=== PATIENT | male | born 1985 | race Caucasian/White ===

== ENCOUNTER 2019-04-15 12:44 | Emergency (ER) | payer BC ==
[2019-04-15] MEDS ORDERED: IBUPROFEN 400 MG TAB ONE (14:08)
[2019-04-15] MEDS ORDERED: IBUPROFEN 200 MG TAB PO ONE (14:09)
--- NOTE | 2019-04-15 14:30 | RAD REPORT ---
EXAM DESCRIPTION: RAD - Mandible <4 Views - 04/15/2019 2:17 pm CLINICAL HISTORY: FACIAL PAIN Jaw trauma, pain COMPARISON: No comparisons FINDINGS: No acute fracture of the mandible seen. The paranasal sinuses and mastoids are clear.
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
== END 2019-04-15 14:45 | disposition home or self-care (01) ==
LOC: ER 12:44
DX: R68.84 Jaw pain (principal)
CPT/HCPCS: 70100; 99284

== ENCOUNTER 2021-08-05 10:17 | Emergency (ER) | payer OTHER ==
[2021-08-05 11:13] LABS: Absolute Lymphocytes (CBC) 1.6 K/uL (0.7-4.9); Basophils % 1.1 % (0-1.3); Hematocrit 46.2 % (39.6-49.0); Lymphocytes % 23.2 % (15.3-44.8); MPV 8.1 fL (7.6-11.3); RBC Red Blood Cell Count 5.39 M/uL (4.33-5.43)
[2021-08-05 11:15] LABS: Protime INR 1.1
[2021-08-05] MEDS ORDERED: NA CHLORIDE 0.9% 1,000 ML ONE (11:27)
[2021-08-05 11:31] LABS: ALT/SGPT 26 U/L (12-78); AST/SGOT 15 U/L (15-37); Albumin 3.7 g/dL (3.4-5.0); Alkaline Phosphatase 59 U/L (45-117); BUN Blood Urea Nitrogen 15 mg/dL (7-18); Bicarbonate 28 mmol/L (21-32); Bilirubin Direct < 0.1 mg/dL (0-0.2); Bilirubin Total 0.4 mg/dL (0.2-1.0); Glucose Level 101 mg/dL (74-106); Magnesium 2.2 mg/dL (1.8-2.4); NT PRO-BNP 8 pg/mL (<125); Potassium 3.9 mmol/L (3.5-5.1); Protein, Total 7.9 g/dL (6.4-8.2); Sodium Level 141 mmol/L (136-145); Troponin (Emerg Dept Use Only) < 0.02 ng/mL (0.0-0.045)
--- NOTE | 2021-08-05 11:43 | RAD REPORT ---
EXAM DESCRIPTION: CT - Chest For Pe Angio - 08/05/2021 11:10 am CLINICAL HISTORY: Chest pain COMPARISON: None. TECHNIQUE: Dynamically enhanced axial 3 mm thick images of the chest were obtained during administra tion of <100> mL Isovue 370 IV contrast. Coronal and oblique reconstruction images were generated and reviewed. Exam utilizes a protocol for optimal evaluation of pulmonary arterial tree. Maximum intensity projections 3D imaging was utilized All CT scans are performed using dose optimization technique as appropriate and may include automated exposure control or mA/KV adjustment according to patient size. FINDINGS: A pulmonary embolus is not seen. A thoracic aortic aneurysm is not noted. A pleural effusion is not seen. A pericardial effusion is not seen. A lung consolidation is not present. IMPRESSION: Negative for a pulmonary embolism.
--- NOTE | 2021-08-05 11:55 | RAD REPORT ---
EXAM DESCRIPTION: Ange Single View08/05/2021 11:47 am CLINICAL HISTORY: Chest pain COMPARISON: none FINDINGS: The lungs appear clear of acute infiltrate. The heart is normal size IMPRESSION: No acute abnormalities displayed
--- NOTE | 2021-08-05 12:50 | EDPHYS ---
Physician Documentation [facility] Name: Hugo Yu Age: 36 yrs Sex: Male : 1985 Arrival Date: 08/05/2021 Time: 10:17 Bed 20 Private MD: ED Physician Floyd Helton HPI: 08/05 10:40 This 36 yrs old Male presents to ER via Ambulatory with complaints of Chest pm1 Pain. 10:40 The patient or guardian reports chest pain that is located primarily in the left pm1 lateral anterior chest. The pain does not radiate. Associated signs and symptoms: Pertinent negatives: abdominal pain, diaphoresis, dizziness, headache, nausea, palpitations, shortness of breath, vomiting. 10:40 The chest pain is described as sharp. Duration: The patient or guardian reports a pm1 single episode, that is still ongoing. Modifying factors: the symptoms are aggravated by deep breath. Severity of pain: in the emergency department the pain is unchanged. The patient has experienced a previous episode, approximately 6 months ago, similar but on the right lower chest. Was diagnosed with PE and is currently taking eliquis 2.5 mg PO BID. The patient has not recently seen a physician. Historical: - Allergies: 10:21 No Known Allergies; aa5 - Home Meds: 10:21 Eliquis oral [Active]; Xanax Oral [Active]; aa5 - PMHx: 10:21 PE; aa5 - PSHx: 10:21 None; aa5 - Immunization history:: Client reports receiving the 2nd dose of the Covid vaccine. - Social history:: Smoking status: Patient reports the use of cigarette tobacco products, 5 cigarettes a day. ROS: 10:40 Constitutional: Negative for fever, chills, and weight loss. pm1 10:40 Respiratory: Negative for shortness of breath, cough, wheezing, and pleuritic chest pain, Abdomen/GI: Negative for abdominal pain, nausea, vomiting, diarrhea, and constipation, MS/Extremity: Negative for injury and deformity, Skin: Negative for injury, rash, and discoloration, Neuro: Negative for headache, weakness, numbness, tingling, and seizure. 10:40 Cardiovascular: Positive for chest pain, of the left lateral anterior chest, Negative for edema, orthopnea, palpitations. 10:40 All other systems are negative. Exam: 10:40 Constitutional: This is a well developed, well nourished patient who is awake, alert, pm1 and in no acute distress. Head/Face: Normocephalic, atraumatic. 10:40 Skin: Warm, dry with normal turgor. Normal color with no rashes, no lesions, and no evidence of cellulitis. MS/ Extremity: Pulses equal, no cyanosis. Neurovascular intact. Full, normal range of motion. 10:40 Cardiovascular: Exam negative for acute changes, Rate: normal, Rhythm: regular, Pulses: no pulse deficits are appreciated, Edema: is not appreciated. 10:40 Respiratory: Exam negative for acute changes, respiratory distress, shortness of breath, Breath sounds: are clear throughout. 10:40 Abdomen/GI: Exam negative for acute changes, Inspection: abdomen appears normal, Palpation: abdomen is soft and non-tender, in all quadrants. 10:40 Neuro: Exam negative for acute changes, Orientation: is normal, Mentation: is normal, Motor: is normal, moves all fours. Vital Signs: 10:22 BP 120 / 83; Pulse 85; Resp 18 S; Temp 97.7(TE); Pulse Ox 98% on R/A; Weight 70.31 kg aa5 (R); Height 5 ft. 10 in. (177.80 cm) (R); 11:15 BP 121 / 85; Pulse 75; Resp 18; Temp 97.8; Pulse Ox 100% ; sl2 11:45 BP 124 / 91; Pulse 76; Resp 18; Pulse Ox 100% on R/A; sl2 12:30 BP 122 / 87; Pulse 71; Resp 18; Pulse Ox 100% on R/A; sl2 13:00 BP 117 / 92; Pulse 70; Resp 18; Temp 97.6(O); Pulse Ox 99% on R/A; sl2 10:22 Body Mass Index 22.24 (70.31 kg, 177.80 cm) aa5 MDM: 10:38 Patient medically screened. pm1 12:48 Data reviewed: vital signs. Data interpreted: Pulse oximetry: on room air is 100 %. pm1 Interpretation: normal. Counseling: I had a detailed discussion with the patient and/or guardian regarding: the historical points, exam findings, and any diagnostic results supporting the discharge/admit diagnosis, lab results, radiology results, the need for outpatient follow up, to return to the emergency department if symptoms worsen or persist or if there are any questions or concerns that arise at home. 08/05 10:39 Order name: Basic Metabolic Panel; Complete Time: 11:34 pm1 08/05 10:39 Order name: CBC with Diff; Complete Time: 11:34 pm1 08/05 10:39 Order name: LFT's; Complete Time: 11:34 pm1 08/05 10:39 Order name: Magnesium; Complete Time: 11:34 pm1 08/05 10:39 Order name: NT PRO-BNP; Complete Time: 11:34 pm1 08/05 10:39 Order name: PT-INR; Complete Time: 11:34 pm1 08/05 10:39 Order name: Troponin (emerg Dept Use Only); Complete Time: 11:34 pm1 08/05 10:39 Order name: XRAY Chest (1 view); Complete Time: 12:17 pm1 08/05 10:39 Order name: EKG; Complete Time: 10:40 pm1 08/05 10:39 Order name: Cardiac monitoring; Complete Time: 11:51 pm1 08/05 10:39 Order name: EKG - Nurse/Tech; Complete Time: 11:51 pm1 08/05 10:39 Order name: IV Saline Lock; Complete Time: 11:51 pm1 08/05 10:39 Order name: CT Chest For PE Angio; Complete Time: 12:17 pm1 08/05 10:39 Order name: Labs collected and sent; Complete Time: 11:51 pm1 08/05 10:39 Order name: O2 Per Protocol; Complete Time: 11:52 pm1 08/05 10:39 Order name: O2 Sat Monitoring; Complete Time: 11:52 pm1 Administered Medications: 11:25 Drug: NS 0.9% 1000 ml Route: IV; Rate: 1000 ml; Site: right antecubital; sl2 11:37 Follow up: Response: No adverse reaction sl2 12:40 Follow up: IV Status: Completed infusion; IV Intake: 1000ml sl2 Disposition: 17:02 Co-signature as Attending Physician, Floyd Helton MD I agree with the assessment and rn plan of care. Attestation: The patient's history, exam findings, diagnostics, and a summary of any interventions or procedures was reviewed in detail with Francisco Koroma NP. Disposition Summary: 08/05/21 12:49 Discharge Ordered Location: Home pm1 Problem: new pm1 Symptoms: have improved pm1 Condition: Stable pm1 Diagnosis - Chest pain, unspecified pm1 Followup: pm1 - With: Emergency Department - When: As needed - Reason: Worsening of condition Followup: pm1 - With: Private Physician - When: 2 - 3 days - Reason: Recheck today's complaints, Continuance of care, Re-evaluation by your physician Discharge Instructions: - Discharge Summary Sheet pm1 - Nonspecific Chest Pain, Adult pm1 Forms: - Medication Reconciliation Form pm1 - Thank You Letter pm1 - Antibiotic Education pm1 - Prescription Opioid Use pm1 Prescriptions: - Cyclobenzaprine 10 mg Oral Tablet - take 1 tablet by ORAL route every 8 hours As needed; 30 tablet; Refills: 0, pm1 Product Selection Permitted Signatures: Dispatcher [employer] EDMS Floyd Helton MD MD rn Calderon, Audri RN RN aa5 Francisco Koroma NP TAIL WORKER pm1 Kellen Cabrera RN RN sl2 Corrections: (The following items were deleted from the chart) 16:22 10:40 Associated signs and symptoms: Pertinent positives: pm1 pm1
--- NOTE | 2021-08-05 12:50 | ER ---
Nurse's Notes [facility] Name: Hugo Yu Age: 36 yrs Sex: Male : 1985 Arrival Date: 08/05/2021 Time: 10:17 Bed 20 Private MD: Diagnosis: Chest pain, unspecified Presentation: 08/05 10:22 Chief complaint: Patient states: "I was unloading something not heavy from the bed of aa5 my truck and my chest started hurting". Pt c/o left sided chest pain that began 30 mins [facility]. Coronavirus screen: At this time, the client does not indicate any symptoms associated with coronavirus-19. Ebola Screen: No symptoms or risks identified at this time. Initial Sepsis Screen: Does the patient meet any 2 criteria? No. Patient's initial sepsis screen is negative. Does the patient have a suspected source of infection? No. Patient's initial sepsis screen is negative. Risk Assessment: Do you want to hurt yourself or someone else? Patient reports no desire to harm self or others. Onset of symptoms was August 05, 2021. 10:22 Acuity: AMADA 3 aa5 10:22 Method Of Arrival: Ambulatory aa5 Historical: - Allergies: 10:21 No Known Allergies; aa5 - Home Meds: 10:21 Eliquis oral [Active]; Xanax Oral [Active]; aa5 - PMHx: 10:21 PE; aa5 - PSHx: 10:21 None; aa5 - Immunization history:: Client reports receiving the 2nd dose of the Covid vaccine. - Social history:: Smoking status: Patient reports the use of cigarette tobacco products, 5 cigarettes a day. Screenin:30 Abuse screen: Denies threats or abuse. Nutritional screening: No deficits noted. sl2 Tuberculosis screening: No symptoms or risk factors identified. Never had TB. Possible symptoms: recent fever, Risk factors: None. Fall Risk None identified. No fall in past 12 months (0 pts). No secondary diagnosis (0 pts). IV access (20 points). Ambulatory Aid- None/Bed Rest/Nurse Assist (0 pts). Gait- Normal/Bed Rest/Wheelchair (0 pts) Mental Status- Oriented to own ability (0 pts). Total Drake Fall Scale indicates No Risk (0-24 pts). Assessment: 10:30 Reassessment: Patient AAO X 3, c/o sudden onset chest pain with SOB while off loading sl2 heavy objects from the back of his truck. Denies other untoward symptoms. Denies needing medication for pain at this time. Patient reports h/o PE with unknown etiology - states has had positive markers for rheumatoid arthritis. 10:30 General: Appears uncomfortable, well groomed, well developed, Behavior is calm, sl2 cooperative, appropriate for age, anxious. Pain: Complains of pain in Left chest Pain does not radiate. Pain currently is 4 out of 10 on a pain scale. at worst was 8 out of 10 on a pain scale. level that patient reports is acceptable is 0 out of 10 on a pain scale. Quality of pain is described as aching, pressure, squeezing, Pain began suddenly, Is continuous. Neuro: No deficits noted. Level of Consciousness is awake, alert, obeys commands, Employee Benefits Attorney are equal bilaterally Moves all extremities. Full function Gait is steady, Speech is normal, Facial symmetry appears normal, Pupils are PERRLA. Cardiovascular: Reports chest pain, palpitations, shortness of breath, Denies diaphoresis, lightheadedness, nausea, Rhythm is sinus rhythm. Respiratory: Reports shortness of breath Airway is patent Trachea midline Respiratory effort is even, unlabored, Breath sounds are clear bilaterally. GI: No deficits noted. No signs and/or symptoms were reported involving the gastrointestinal system. : No deficits noted. No signs and/or symptoms were reported regarding the genitourinary system. EENT: No deficits noted. No signs and/or symptoms were reported regarding the EENT system. Derm: No deficits noted. No signs and/or symptoms reported regarding the dermatologic system. Musculoskeletal: No deficits noted. No signs and/or symptoms reported regarding the musculoskeletal system. 11:24 Reassessment: Portable CXR completed at bedside. sl2 11:52 Reassessment: Patient sitting up in bed - shows no signs of acute distress - Vital sl2 signs stable - will continue to re-assess and monitor. Awaiting diagnostic results. Vital Signs: 10:22 BP 120 / 83; Pulse 85; Resp 18 S; Temp 97.7(TE); Pulse Ox 98% on R/A; Weight 70.31 kg aa5 (R); Height 5 ft. 10 in. (177.80 cm) (R); 11:15 BP 121 / 85; Pulse 75; Resp 18; Temp 97.8; Pulse Ox 100% ; sl2 11:45 BP 124 / 91; Pulse 76; Resp 18; Pulse Ox 100% on R/A; sl2 12:30 BP 122 / 87; Pulse 71; Resp 18; Pulse Ox 100% on R/A; sl2 13:00 BP 117 / 92; Pulse 70; Resp 18; Temp 97.6(O); Pulse Ox 99% on R/A; sl2 10:22 Body Mass Index 22.24 (70.31 kg, 177.80 cm) aa5 ED Course: 10:17 Patient arrived in ED. as 10:21 Arm band placed on. aa5 10:23 Triage completed. aa5 10:28 Francisco Koroma NP is PHCP. pm1 10:28 Floyd Helton MD is Attending Physician. pm1 10:30 Patient has correct armband on for positive identification. Placed in gown. Bed in low sl2 position. Call light in reach. Adult w/ patient. nuclear monitoring technician on. Pulse ox on. NIBP on. Door closed. Noise minimized. Warm blanket given. 10:35 Inserted saline lock: 20 gauge in right antecubital area, using aseptic technique. sl2 Blood collected. 10:35 Patient maintains SpO2 saturation greater than 95% on room air. sl2 10:[address] via wheelchair. sl2 11:10 CT Chest For PE Angio In Process Unspecified. EDMS 11:11 Kellen Cabrera, RN is Primary Nurse. sl2 11:13 Patient moved back from CT. sl2 11:47 XRAY Chest (1 view) In Process Unspecified. EDMS 13:19 No provider procedures requiring assistance completed. IV discontinued, intact, sl2 bleeding controlled, No redness/swelling at site. Pressure dressing applied. Administered Medications: 11:25 Drug: NS 0.9% 1000 ml Route: IV; Rate: 1000 ml; Site: right antecubital; sl2 11:37 Follow up: Response: No adverse reaction sl2 12:40 Follow up: IV Status: Completed infusion; IV Intake: 1000ml sl2 Intake: 12:40 IV: 1000ml; Total: 1000ml. sl2 Outcome: 12:49 Discharge ordered by . pm1 13:19 Discharged to home ambulatory. sl2 13:19 Condition: stable 13:19 Discharge instructions given to Instructed on discharge instructions, follow up and referral plans. Demonstrated understanding of instructions, follow-up care, medications, Prescriptions given X 1. 13:20 Patient left the ED. sl2 Signatures: Dispatcher [employer] Armida Garza Audri RN RN aa5 Francisco Koroma NP FURNITURE DIPPER pm1 Kellen Cabrera RN RN sl2 Corrections: (The following items were deleted from the chart) 11:22 10:30 Reassessment: Reassessment: sl2 sl2
[2021-08-05 13:33] VITALS: BP 117/92; TEMP 97.6; O2SAT 99
--- NOTE | 2021-08-09 18:36 | EKG ---
Test Date: 2021-08-05 Test Time: 10:34:51 Interpreter Deaf: LISETTE MEASUREMENT RESULTS: Intervals: Rate: 83 MO: 136 QRSD: 90 QT: 346 QTc: 406 [place]: P: 62 MO: 136 QRS: 79 T: 40 INTERPRETIVE STATEMENTS: Normal sinus rhythm Normal ECG Compared to ECG 10/08/1994 15:29:00 No significant changes Electronically Signed On 08-09-21 18:24:53 MUSIC EDUCATOR by Alexandre Valdez
--- OUTSIDE RECORDS SUMMARY | 2021-08-14 11:10 | XMS REPORT | Continuity of Care Document ---
:1985 Author Organization [facility] Address [address] [place] [address] [address] [place] [address] Care Team Providers Name Role Phone CELESTINA Attending Clinician Unavailable Problems This patient has no known problems. Allergies, Adverse Reactions, Alerts This patient has no known allergies or adverse reactions. Medications This patient has no known medications. Procedures This patient has no known procedures. Encounters Start End Encounter Admission Attending Care Care Encounter Source Date/Time Date/Time Type Type Clinicians Facility Department ID 2021-03-10 2021-03-10 Outpatient [facility] [id number] [place] 00:00:00 00:00:00 [facility] [address] 2021-03-10 2021-03-10 Outpatient [facility] 2100 [id number] [place] 00:00:00 00:00:00 [facility] [address] 2021-01-29 2021-01-29 Outpatient [facility] 2100 [id number] [place] 00:00:00 00:00:00 [facility] [address] Results This patient has no known results.
== END 2021-08-05 13:20 | disposition home or self-care (01) ==
LOC: ER 10:17
DX: R07.9 Chest pain, unspecified (principal); F17.210 Nicotine dependence, cigarettes, uncomplicated; Z86.711 Personal history of pulmonary embolism; Z79.01 Long term (current) use of anticoagulants
CPT/HCPCS: 93005; 85025; 80048; 36415; 83735; 85610; 82565; 80076; 84484; 83880; 71275; 71045; 96360; 99285; Q9967; J7030

== ENCOUNTER 2022-03-31 22:04 | Emergency (ER) | payer OTHER ==
[2022-03-31] MEDS ORDERED: ACETAMINOPHEN 500 MG TAB ONE (22:27)
[2022-03-31] MEDS ORDERED: IBUPROFEN 400 MG TAB ONE (22:27)
--- NOTE | 2022-03-31 23:18 | EDPHYS ---
Physician Documentation [facility] Name: Hugo Yu Age: 36 yrs Sex: Male : 1985 Arrival Date: 03/31/2022 Time: 22:08 Bed 14 Private MD: ED Physician Tomas Ayers HPI: 03/31 23:09 This 36 yrs old Male presents to ER via Ambulatory with complaints of Fever. kb 23:09 The patient reports fever, that was measured at 105 degrees Fahrenheit, with an kb emergency department temperature of 103.1 degrees Fahrenheit. Onset: The symptoms/episode began/occurred today. Modifying factors: there are no obvious modifying factors. Associated signs and symptoms: Pertinent positives: bodyaches, chills, malaise, fatigue. Severity of symptoms: At their worst the symptoms were moderate in the emergency department the symptoms are unchanged. The patient has not experienced similar symptoms in the past. The patient has not recently seen a physician. Pt reports he tested positive for covid this morning and hasn't been able to break his fever. Has been taking 200mg ibuprofen every 4-6 hours without relief of fever. . Historical: - Allergies: 22:12 No Known Allergies; ld1 - Home Meds: 22:12 None [Active]; ld1 - PMHx: 22:12 PE; ld1 - PSHx: 22:12 None; ld1 - Immunization history:: Adult Immunizations up to date, Client reports receiving the 2nd dose of the Covid vaccine. - Social history:: Smoking status: Patient reports the use of cigarette tobacco products, denies chronic smoking, but will smoke occasionally, Patient uses alcohol, occasionally. ROS: 23:09 Cardiovascular: Negative for chest pain, palpitations, and edema. kb 23:09 Constitutional: Positive for body aches, chills, fatigue, fever, malaise. 23:09 All other systems are negative. Exam: 23:09 Constitutional: This is a well developed, well nourished patient who is awake, alert, kb and in no acute distress. Head/Face: Normocephalic, atraumatic. ENT: Moist Mucous membranes Cardiovascular: Regular rate and rhythm with a normal S1 and S2. No gallops, murmurs, or rubs. No pulse deficits. Respiratory: Respirations even and unlabored. No increased work of breathing. Talking in full sentences Skin: Warm, dry with normal turgor. Normal color. MS/ Extremity: Pulses equal, no cyanosis. Neurovascular intact. Full, normal range of motion. Neuro: Awake and alert, GCS 15, oriented to person, place, time, and situation. Moves all extremities. Normal gait. Psych: Awake, alert, with orientation to person, place and time. Behavior, mood, and affect are within normal limits. Vital Signs: 22:10 BP 126 / 64; Pulse 116; Resp 18; Temp 103.1(O); Pulse Ox 98% on R/A; Weight 70.31 kg; ld1 Height 5 ft. 10 in. (177.80 cm); Pain 7/10; 23:16 Temp 101.1(O); lg3 22:10 Body Mass Index 22.24 (70.31 kg, 177.80 cm) ld1 MDM: 22:10 Patient medically screened. kb 23:08 Data reviewed: vital signs, nurses notes. Data interpreted: Pulse oximetry: on room air kb is 98 %. Interpretation: normal. Counseling: I had a detailed discussion with the patient and/or guardian regarding: the historical points, exam findings, and any diagnostic results supporting the discharge/admit diagnosis, the need for outpatient follow up, a family practitioner, to return to the emergency department if symptoms worsen or persist or if there are any questions or concerns that arise at home. 23:18 ED course: Pt educated on correct fever treatment dosages. kb Administered Medications: 22:21 Drug: Tylenol 1000 mg Route: PO; ld1 22:21 Drug: Ibuprofen 400 mg Route: PO; ld1 Disposition Summary: 03/31/22 23:18 Discharge Ordered Location: Home kb Condition: Stable kb Diagnosis - Coronavirus infection, unspecified kb Followup: kb - With: Emergency Department - When: As needed - Reason: Worsening of condition Followup: kb - With: Private Physician - When: 2 - 3 days - Reason: Recheck today's complaints, Continuance of care, Re-evaluation by your physician Discharge Instructions: - Discharge Summary Sheet kb - Viral Respiratory Infection, [id number] kb - COVID-19 kb Forms: - Medication Reconciliation Form kb - Thank You Letter kb - Antibiotic Education kb - Prescription Opioid Use kb Signatures: Snehal Julien, BENY-C VP [employer]ine [employer], RN RN ld1 Corrections: (The following items were deleted from the chart) 22:14 22:12 Social history: Smoking status: Patient denies any tobacco usage or history of. ld1 Patient/guardian denies using alcohol, ld1
--- NOTE | 2022-03-31 23:18 | ER ---
Nurse's Notes [facility] Name: Hugo Yu Age: 36 yrs Sex: Male : 1985 Arrival Date: 03/31/2022 Time: 22:08 Bed 14 Private MD: Diagnosis: Coronavirus infection, unspecified Presentation: 03/31 22:10 Chief complaint: Patient states: I tested positive for COVID this morning - fever of ld1 103, fever got up to 105 prior to arrival. Pt reports taking ibuprofen and fever is not coming down. Coronavirus screen: Client presents with at least one sign or symptom that may indicate coronavirus-19. Standard/surgical mask placed on the client. Ebola Screen: No symptoms or risks identified at this time. Initial Sepsis Screen: Does the patient meet any 2 criteria? No. Patient's initial sepsis screen is negative. Does the patient have a suspected source of infection? No. Patient's initial sepsis screen is negative. Risk Assessment: Do you want to hurt yourself or someone else? Patient reports no desire to harm self or others. Onset of symptoms was March 31, 2022. 22:10 Method Of Arrival: Ambulatory ld1 22:10 Acuity: AMADA 4 ld1 Triage Assessment: 22:10 General: Appears in no apparent distress. comfortable, Behavior is calm, cooperative, ld1 appropriate for age. Pain: Complains of pain in all over body. EENT: No signs and/or symptoms were reported regarding the EENT system. Neuro: Level of Consciousness is awake, alert, obeys commands, Oriented to person, place, time, situation. Cardiovascular: Capillary refill < 3 seconds Patient's skin is warm and dry. Respiratory: Airway is patent Respiratory effort is even, unlabored. GI: Abdomen is flat, obese. : No signs and/or symptoms were reported regarding the genitourinary system. Derm: No signs and/or symptoms reported regarding the dermatologic system. Musculoskeletal: No signs and/or symptoms reported regarding the musculoskeletal system. Historical: - Allergies: 22:12 No Known Allergies; ld1 - Home Meds: 22:12 None [Active]; ld1 - PMHx: 22:12 PE; ld1 - PSHx: 22:12 None; ld1 - Immunization history:: Adult Immunizations up to date, Client reports receiving the 2nd dose of the Covid vaccine. - Social history:: Smoking status: Patient reports the use of cigarette tobacco products, denies chronic smoking, but will smoke occasionally, Patient uses alcohol, occasionally. Screenin:21 Abuse screen: Denies threats or abuse. Denies injuries from another. Nutritional ld1 screening: No deficits noted. Tuberculosis screening: No symptoms or risk factors identified. Fall Risk None identified. Assessment: 22:21 Reassessment: Patient appears in no apparent distress at this time. Patient and/or ld1 family updated on plan of care and expected duration. Pain level reassessed. Patient is alert, oriented x 3, equal unlabored respirations, skin warm/dry/pink. See triage assessment. Vital Signs: 22:10 BP 126 / 64; Pulse 116; Resp 18; Temp 103.1(O); Pulse Ox 98% on R/A; Weight 70.31 kg; ld1 Height 5 ft. 10 in. (177.80 cm); Pain 7/10; 23:16 Temp 101.1(O); lg3 22:10 Body Mass Index 22.24 (70.31 kg, 177.80 cm) ld1 ED Course: 22:08 Patient arrived in ED. bp1 22:09 Snehal Julien FNP-C is [facility]. kb 22:09 Tomas Ayers MD is Attending Physician. kb 22:10 Arm band placed on right wrist. ld1 22:12 Triage completed. ld1 22:21 Marine Meng, RN is Primary Nurse. ld1 22:21 Patient has correct armband on for positive identification. Placed in gown. Bed in low ld1 position. Call light in reach. Side rails up X2. aircraft fuselage framer on. Pulse ox on. NIBP on. Door closed. Noise minimized. Warm blanket given. 22:21 No provider procedures requiring assistance completed. ld1 23:32 Patient did not have IV access during this emergency room visit. ld1 Administered Medications: 22:21 Drug: Tylenol 1000 mg Route: PO; ld1 22:21 Drug: Ibuprofen 400 mg Route: PO; ld1 Medication: 22:21 VIS not applicable for this client. ld1 Outcome: 23:18 Discharge ordered by . kb 23:32 Discharged to home ambulatory, with family. ld1 23:32 Condition: stable 23:32 Discharge instructions given to patient, family, Instructed on discharge instructions, follow up and referral plans. Demonstrated understanding of instructions, follow-up care. 23:32 Patient left the ED. ld1 Signatures: Snehal Julien FNP-C FNP-Mayuri [place]os[place], RN RN lg3 Candy Amaya Lauren, RN RN ld1 Corrections: (The following items were deleted from the chart) 22:13 22:10 Pulse 116bpm; Resp 18bpm; Pulse Ox 98% RA; Temp 103.1F Oral; 70.31 kg; Height 5 ld1 ft. 10 in.; BMI: 22.2; Pain 7/10; ld1 22:14 22:12 Social history: Smoking status: Patient denies any tobacco usage or history of. ld1 Patient/guardian denies using alcohol, ld1
[2022-03-31 23:37] VITALS: BP 126/64; O2SAT 98
[2022-03-31 23:39] VITALS: TEMP 101.1
== END 2022-03-31 23:32 | disposition home or self-care (01) ==
LOC: ER 22:04
DX: U07.1 COVID-19 (principal)
CPT/HCPCS: 99284

== ENCOUNTER 2022-11-14 01:32 | Observation (INO) | payer OTHER ==
--- OUTSIDE RECORDS SUMMARY | 2022-11-14 01:36 | XMS REPORT | Continuity of Care Document ---
:1985 Author Organization [facility] t Address [address] [place] [address] Care Team Providers Name Role Phone Kayden Mckenzie MD Primary Care Physician APOORVA OSCAR Attending Clinician Unavailable Problems This patient has no known problems. Allergies, Adverse Reactions, Alerts This patient has no known allergies or adverse reactions. Social History Social Habit Start Date Stop Date Quantity Comments Source History of Occasional tobacco Method ist tobacco use smoker Hospital Tobacco use and 2021-01-29 2021-01-29 [facility] non-user Hospital Alcohol intake 2021-01-29 2021-01-29 [facility] alcohol (finding) Hospita l Alcohol Comment 2021-01-29 2021-01-29 social [facility] 00:00:00 00:00:00 Hospital Sex Ass[birth year] At [birth year] [facility] 00:00:00 00:00:00 Hospital Smoking Status Start Date Stop Date Source Occasional tobacco smoker 2021-01-29 00:00:00 [facility] Medications This patient has no known medications. Procedures This patient has no known procedures. Plan of Care Planned Activity Planned Date Details Comments Source Future Scheduled 2022-09-18 COVID-19 VACCINE (#1) [facility] Test 21:04:46 [code = COVID-19 VACCINE (#1)] Future Scheduled 2022-09-18 Pneumococcal Vaccine: [facility] Test 21:04:46 Pediatrics (0 to 5 Years) and At-Risk Patients (6 to 64 Years) (1 - PCV) [code = Pneumococcal Vaccine: Pediatrics (0 to 5 Years) and At-Risk Patients (6 to 64 Years) (1 - PCV)] Future Scheduled 2022-09-18 Hepatitis C screening [facility] Test 21:04:46 (procedure) [code = 534253025] Future Scheduled 2022-09-18 INFLUENZA VACCINE Method [facility] Test 21:04:46 [code = INFLUENZA VACCINE] Encounters Start End Encounter Admission Attending Care Care Encounter Source Date/Time Date/Time Type Type Clinicians Facility Department ID 2021-03-10 2021-03-10 Outpatient [facility] [id number] [place] 00:00:00 00:00:00 [facility] [address] 2021-03-10 2021-03-10 Outpatient [facility] 2100 [id number] [place] 00:00:00 00:00:00 [facility] [address] 2021-01-29 2021-01-29 Outpatient [facility] 2100 [id number] [place] 00:00:00 00:00:00 [facility] [address] Results This patient has no known results.
[2022-11-14 02:58] LABS: Absolute Lymphocytes (CBC) 1.6 K/uL (0.7-4.9); Hematocrit 42.7 % (39.6-49.0); Lymphocytes % 23.9 % (15.3-44.8); MCV 86.2 fL (80-100); MPV 8.5 fL (7.6-11.3); RBC Red Blood Cell Count 4.95 M/uL (4.33-5.43)
[2022-11-14 03:00] LABS: Protime INR 0.94
[2022-11-14 03:14] LABS: Potassium 3.4 mmol/L (3.5-5.1); Troponin High Sensitivity 8.2 pg/mL (<58.9)
--- NOTE | 2022-11-14 04:05 | EDPHYS ---
Physician Documentation [facility] Name: Hugo Yu Age: 37 yrs Sex: Male : 1985 Arrival Date: 11/14/2022 Time: 01:35 Bed 8 Private MD: ED Physician Heriberto Lopez HPI: 11/14 01:50 This 37 yrs old Male presents to ER via Unassigned with complaints of Left Side ms3 Numbness. 01:50 37-year-old male with past medical history of pulmonary embolism presents for ms3 left-sided weakness and numbness that occurred when waking up. Patient states he woke up anxious, went to get out of bed and his left side was weak. Patient states he was able to crawl and call EMS. Patient states symptoms resolved after a few minutes. Patient states his left side does not feel normal at this time.. Historical: - Allergies: 01:54 No Known Allergies; vc1 - Home Meds: 01:54 levothyroxine oral [Active]; Xanax Oral [Active]; vc1 - PMHx: 01:54 PE; Hypothyroidism; Anxiety; vc1 - PSHx: 01:54 None; vc1 - Immunization history:: Adult Immunizations. - Social history:: Smoking status: Patient denies any tobacco usage or history of. ROS: 01:50 Constitutional: Negative for fever, and chills. Neck: Negative for injury, pain, and ms3 swelling, Cardiovascular: Negative for chest pain, and palpitations. Respiratory: Negative for shortness of breath, cough, wheezing, and pleuritic chest pain, Abdomen/GI: Negative for abdominal pain, nausea, vomiting, diarrhea, and constipation, Back: Negative for injury and pain, MS/Extremity: Negative for injury and deformity, Skin: Negative for injury, rash, and discoloration. 01:50 Neuro: Positive for numbness, weakness. 01:50 All other systems are negative. Exam: 01:50 Constitutional: This is a well developed, well nourished patient who is awake, alert, ms3 and in no acute distress. Head/Face: Normocephalic, atraumatic. Eyes: Pupils equal round and reactive to light, extra-ocular motions intact. Lids and lashes normal. Conjunctiva and sclera are non-icteric and not injected. Periorbital areas with no swelling, redness, or edema. ENT: Nares patent. No nasal discharge, no septal abnormalities noted. Tympanic membranes are normal and external auditory canals are clear. Oropharynx with no redness, swelling, or masses, exudates, or evidence of obstruction, uvula midline. Mucous membranes moist. Neck: Trachea midline, no cervical lymphadenopathy. Supple, full range of motion without nuchal rigidity, or vertebral point tenderness. No Meningismus. Chest/axilla: Normal chest wall appearance and motion. Nontender with no deformity. Cardiovascular: Regular rate and rhythm with a normal S1 and S2. No gallops, murmurs, or rubs. Normal PMI, no JVD. No pulse deficits. Respiratory: Lungs have equal breath sounds bilaterally, clear to auscultation and percussion. No rales, rhonchi or wheezes noted. No increased work of breathing, no retractions or nasal flaring. Abdomen/GI: Soft, non-tender, with normal bowel sounds. No distension or tympany. No guarding or rebound. No evidence of tenderness throughout. Skin: Warm, dry with normal turgor. Normal color with no rashes, no lesions, and no evidence of cellulitis. MS/ Extremity: Pulses equal, no cyanosis. Neurovascular intact. Full, normal range of motion. 04:08 Radiologist reports: Negative ms3 04:08 ECG was reviewed by the Attending Physician. Vital Signs: 01:46 BP 131 / 105; Pulse 84; Resp 18; Temp 97.6; Pulse Ox 100% ; Weight 72.57 kg; Height 5 vc1 ft. 10 in. (177.80 cm); Pain 0/10; 03:06 BP 127 / 97; Pulse 71; Resp 20; Pulse Ox 99% on R/A; Pain 0/10; ke1 04:46 BP 122 / 88; Pulse 74; Resp 19; Temp 97.6; Pulse Ox 99% on R/A; Pain 0/10; ke1 01:46 Body Mass Index 22.96 (72.57 kg, 177.80 cm) vc1 NIH Stroke Scale Scores: 01:50 NIHSS Score: 0 ms3 02:18 NIHSS Score: 0 ke1 MDM: 01:49 Patient medically screened. ms3 01:53 Differential diagnosis: CVA, TIA, metabolic disorder. ms3 04:05 Data reviewed: vital signs, nurses notes, lab test result(s), EKG, radiologic studies, ms3 and as a result, I will admit patient. Consideration of Admission/Observation Patient was admitted/placed on observation. Management of patient was discussed with the following: Hospitalist: Discussed case with JACQUI Mcdowell, and she accepts patient on behalf of Dr Rossi.. I considered the following discharge prescriptions or medication management in the emergency department Medications were administered in the Emergency Department. See MAR. Independent interpretation of the following test(s) in the Emergency Department log grader: rate is 73 beats/min, Rhythm is normal sinus rhythm, regular, with no ectopy, Interpretation: normal rate, normal rhythm. Counseling: I had a detailed discussion with the patient and/or guardian regarding: the historical points, exam findings, and any diagnostic results supporting the discharge/admit diagnosis, lab results, radiology results, the need for further work-up and treatment in the hospital. ED course: Discussed labs, CT, chest x-ray with patient. Patient understands and agrees with observation. Patient states his symptoms have resolved at this time. All questions were answered. 11/14 01:50 Order name: Basic Metabolic Panel ms3 11/14 01:50 Order name: CBC with Diff ms3 11/14 01:50 Order name: High Sensitivity Troponin ms3 11/14 01:50 Order name: Protime (+inr) ms3 11/14 01:50 Order name: Ptt, Activated ms3 11/14 02:27 Order name: Glucose, Ancillary Testing; Complete Time: 02:28 EDMS 11/14 01:50 Order name: CXR XRAY ms3 11/14 03:00 Order name: Protime (+INR); Complete Time: 03:08 EDMS 11/14 03:00 Order name: PTT, Activated Partial Thromb; Complete Time: 03:08 EDMS 11/14 03:03 Order name: CBC with Automated Diff; Complete Time: 03:08 EDMS 11/14 03:14 Order name: Basic Metabolic Panel; Complete Time: 04:01 EDMS 11/14 03:14 Order name: Troponin High Sensitivity; Complete Time: 04:01 EDMS 11/14 04:10 Order name: SARS RAPID sb4 11/14 04:55 Order name: SARS-COV-2 Antigen Rapid EDMS 11/14 01:50 Order name: EKG; Complete Time: 01:51 ms3 11/14 01:50 Order name: Accucheck; Complete Time: 02:17 ms3 11/14 01:50 Order name: Cardiac monitoring; Complete Time: 03:04 ms3 11/14 01:50 Order name: EKG - Nurse/Tech; Complete Time: 03:04 ms3 11/14 01:50 Order name: IV Saline Lock; Complete Time: 02:20 ms3 11/14 01:50 Order name: Labs collected and sent; Complete Time: 02:20 ms3 11/14 01:50 Order name: NPO; Complete Time: 02:20 ms3 11/14 01:50 Order name: O2 Per Protocol; Complete Time: 03:04 ms3 11/14 01:50 Order name: O2 Sat Monitoring; Complete Time: 03:04 ms3 11/14 01:50 Order name: Stroke Swallow Screen; Complete Time: 03:05 ms3 11/14 01:50 Order name: CT Head Brain wo Cont ms3 EC:08 Rate is 74 beats/min. Rhythm is regular. QRS [place] is Normal. DE interval is normal. ms3 Clinical impression: Normal ECG. Interpreted by me. Reviewed by me. Administered Medications: 04:27 Drug: Aspirin 81 mg Route: PO; ke1 05:26 Follow up: Response: No adverse reaction ke1 Disposition Summary: 11/14/22 04:04 Hospitalization Ordered Hospitalization Status: Observation ms3 Provider: Orville Rossi ms3 Location: Telemetry/MedSurg (observation) ms3 Condition: Stable ms3 Problem: new ms3 Symptoms: are unchanged ms3 Bed/Room Type: Standard ms3 Room Assignment: 215(11/14/22 05:21) mw Diagnosis - Transient cerebral ischemic attack, unspecified ms3 Forms: - Medication Reconciliation Form ms3 - SBAR form ms3 NIH Stroke Scale - NIH Stroke Score Date: 11/14/2022 Time: 01:50 Total Score = 0 1a. Level of Consciousness (LOC) - 0(Alert) 1b. Level of Consciousness (LOC) (Month \T\ Age) - 0(Both) 1c. LOC Commands (Open \T\ Closes Eyes/Collar Cutter) - 0(Both) 2. Best Gaze (Lateral Gaze Paresis) - 0(Normal) 3. Visual Field Loss - 0(No visual loss) 4. Facial Palsy - 0(Normal) 5a. Left Arm: Motor (10-second hold) - 0(No drift) 5b. Right Arm: Motor (10-second hold) - 0(No drift) 6a. Left Leg: Motor (5-second hold - always test supine) - 0(No drift) 6b. Right Leg: Motor (5-second hold - always test supine) - 0(No drift) 7. Limb Ataxia (finger/nose \T\ heel/espinosa - test with eyes open) - 0(Absent) 8. Sensory Loss (pinprick arms/legs/face) - 0(Normal) 9. Best Language: Aphasia (description/naming/reading) - 0(No aphasia) 10. Dysarthria (speech clarity - read or repeat words) - 0(Normal) 11. Extinction and Inattention (visual/tactile/auditory/spatial/personal) - 0(No abnormality) Initials: ms3 NIH Stroke Scale - NIH Stroke Score Date: 11/14/2022 Time: :18 Total Score = 0 1a. Level of Consciousness (LOC) - 0(Alert) 1b. Level of Consciousness (LOC) (Month \T\ Age) - 0(Both) 1c. LOC Commands (Open \T\ Closes Eyes/Collar Cutter) - 0(Both) 2. Best Gaze (Lateral Gaze Paresis) - 0(Normal) 3. Visual Field Loss - 0(No visual loss) 4. Facial Palsy - 0(Normal) 5a. Left Arm: Motor (10-second hold) - 0(No drift) 5b. Right Arm: Motor (10-second hold) - 0(No drift) 6a. Left Leg: Motor (5-second hold - always test supine) - 0(No drift) 6b. Right Leg: Motor (5-second hold - always test supine) - 0(No drift) 7. Limb Ataxia (finger/nose \T\ heel/espinosa - test with eyes open) - 0(Absent) 8. Sensory Loss (pinprick arms/legs/face) - 0(Normal) 9. Best Language: Aphasia (description/naming/reading) - 0(No aphasia) 10. Dysarthria (speech clarity - read or repeat words) - 0(Normal) 11. Extinction and Inattention (visual/tactile/auditory/spatial/personal) - 0(No abnormality) Initials: ke1 Signatures: Dispatcher [employer] EDMS Anahi Shearer RN RN mw Heriberto Lopez DO DO ms3 Jovana Padilla RN RN vc1 Stephen Pierce RN RN ke1 Corrections: (The following items were deleted from the chart) 05:21 04:04 ms3 mw
--- NOTE | 2022-11-14 04:05 | ER ---
Nurse's Notes [facility] Name: Hugo Yu Age: 37 yrs Sex: Male : 1985 Arrival Date: 11/14/2022 Time: 01:35 Bed 8 Private MD: Diagnosis: Transient cerebral ischemic attack, unspecified Presentation: 11/14 01:46 Chief complaint: Patient states: "I woke up around 0030 and I couldn't move my left vc1 side. I called EMS and they said all my vitals were stable and I was able to move again so I didn't go with them but I still feel like there is some circulation issues.". Coronavirus screen: Vaccine status: Patient reports receiving the 1st dose of the Covid vaccine. Client denies travel out of the [place] in the last 14 days. At this time, the client does not indicate any symptoms associated with coronavirus-19. Ebola Screen: Patient negative for fever greater than or equal to 101.5 degrees Fahrenheit, and additional compatible Ebola Virus Disease symptoms Patient denies exposure to infectious person. Patient denies travel to an Ebola-affected area in the 21 days before illness onset. No symptoms or risks identified at this time. Initial Sepsis Screen: Does the patient meet any 2 criteria? No. Patient's initial sepsis screen is negative. Does the patient have a suspected source of infection? No. Patient's initial sepsis screen is negative. Risk Assessment: Do you want to hurt yourself or someone else? Patient reports no desire to harm self or others. Onset of symptoms was November 14, 2022 at 00:30. 01:46 Method Of Arrival: Ambulatory vc1 01:46 Acuity: AMADA 2 vc1 Triage Assessment: 01:59 General: Appears in no apparent distress. uncomfortable, Behavior is calm, cooperative, vc1 appropriate for age. Pain: Denies pain. EENT: No deficits noted. No signs and/or symptoms were reported regarding the EENT system. Neuro: Level of Consciousness is awake, alert, obeys commands, Oriented to person, place, time, situation, Appropriate for age Gait is steady, Speech is normal, Facial symmetry appears normal, Reports numbness in left arm. Cardiovascular: No deficits noted. Respiratory: Airway is patent Respiratory effort is even, unlabored, Respiratory pattern is regular, symmetrical. GI: No deficits noted. No signs and/or symptoms were reported involving the gastrointestinal system. : No deficits noted. No signs and/or symptoms were reported regarding the genitourinary system. Derm: No deficits noted. No signs and/or symptoms reported regarding the dermatologic system. Musculoskeletal: No deficits noted. No signs and/or symptoms reported regarding the musculoskeletal system. Historical: - Allergies: 01:54 No Known Allergies; vc1 - Home Meds: 01:54 levothyroxine oral [Active]; Xanax Oral [Active]; vc1 - PMHx: 01:54 PE; Hypothyroidism; Anxiety; vc1 - PSHx: 01:54 None; vc1 - Immunization history:: Adult Immunizations. - Social history:: Smoking status: Patient denies any tobacco usage or history of. Screenin:03 Abuse screen: Denies threats or abuse. Nutritional screening: No deficits noted. vc1 Tuberculosis screening: No symptoms or risk factors identified. 02:18 [facility] ED Fall Risk Assessment (Adult) History of falling in the last 3 months, ke1 including since admission No falls in past 3 months (0 pts) Confusion or Disorientation No (0 pts) Intoxicated or Sedated No (0 pts) Impaired Gait No (0 pts) Mobility Assist Device Used No (0 pt) Altered Elimination No (0 pt) Score/Fall Risk Level 0 - 2 = Low Risk. VAN Screening: Arm Drift: Patient shows no arm weakness. Visual Disturbance: No visual disturbance noted. Aphasia: No aphasia noted. Neglect: No neglect noted. Assessment: 02:19 Reassessment: Patient is alert, oriented x 3, equal unlabored respirations, skin ke1 warm/dry/pink. Patient states feeling better. Patient states symptoms have improved. 03:06 Reassessment: No changes from previously documented assessment. ke1 Vital Signs: 01:46 BP 131 / 105; Pulse 84; Resp 18; Temp 97.6; Pulse Ox 100% ; Weight 72.57 kg; Height 5 vc1 ft. 10 in. (177.80 cm); Pain 0/10; 03:06 BP 127 / 97; Pulse 71; Resp 20; Pulse Ox 99% on R/A; Pain 0/10; ke1 04:46 BP 122 / 88; Pulse 74; Resp 19; Temp 97.6; Pulse Ox 99% on R/A; Pain 0/10; ke1 01:46 Body Mass Index 22.96 (72.57 kg, 177.80 cm) vc1 NIH Stroke Scale Scores: 01:50 NIHSS Score: 0 ms3 02:18 NIHSS Score: 0 ke1 ED Course: 01:00 Patient has correct armband on for positive identification. ke1 01:35 Patient arrived in ED. ja2 01:35 Heriberto Lopez DO is Attending Physician. ms3 01:54 Triage completed. vc1 02:02 Stephen Pierce, RN is Primary Nurse. ke1 02:02 Arm band placed on right wrist. vc1 02:17 Inserted saline lock: 20 gauge in right forearm, using aseptic technique. ke1 02:17 Basic Metabolic Panel Sent. ke1 02:17 CBC with Diff Sent. ke1 02:17 High Sensitivity Troponin Sent. ke1 02:17 Protime (+inr) Sent. ke1 02:17 Ptt, Activated Sent. ke1 04:04 Orville Rossi MD is Hospitalizing Provider. ms3 04:27 SARS RAPID Sent. ke1 05:46 No provider procedures requiring assistance completed. Patient admitted, IV remains in ke1 place. Administered Medications: 04:27 Drug: Aspirin 81 mg Route: PO; ke1 05:26 Follow up: Response: No adverse reaction ke1 Medication: 02:03 VIS not applicable for this client. vc1 Outcome: 04:04 Decision to Hospitalize by Provider. ms3 05:46 Admitted to Med/surg accompanied by nurse. ke1 05:46 Condition: good 05:46 Instructed on the need for admit. 05:47 Patient left the ED. ke1 NIH Stroke Scale - NIH Stroke Score Date: 11/14/2022 Time: 01:50 Total Score = 0 1a. Level of Consciousness (LOC) - 0(Alert) 1b. Level of Consciousness (LOC) (Month \\T\\ Age) - 0(Both) 1c. LOC Commands (Open \\T\\ Closes Eyes/Network Operations Specialist) - 0(Both) 2. Best Gaze (Lateral Gaze Paresis) - 0(Normal) 3. Visual Field Loss - 0(No visual loss) 4. Facial Palsy - 0(Normal) 5a. Left Arm: Motor (10-second hold) - 0(No drift) 5b. Right Arm: Motor (10-second hold) - 0(No drift) 6a. Left Leg: Motor (5-second hold - always test supine) - 0(No drift) 6b. Right Leg: Motor (5-second hold - always test supine) - 0(No drift) 7. Limb Ataxia (finger/nose \\T\\ heel/espinosa - test with eyes open) - 0(Absent) 8. Sensory Loss (pinprick arms/legs/face) - 0(Normal) 9. Best Language: Aphasia (description/naming/reading) - 0(No aphasia) 10. Dysarthria (speech clarity - read or repeat words) - 0(Normal) 11. Extinction and Inattention (visual/tactile/auditory/spatial/personal) - 0(No abnormality) Initials: ms3 NIH Stroke Scale - NIH Stroke Score Date: 11/14/2022 Time: 02:18 Total Score = 0 1a. Level of Consciousness (LOC) - 0(Alert) 1b. Level of Consciousness (LOC) (Month \\T\\ Age) - 0(Both) 1c. LOC Commands (Open \\T\\ Closes Eyes/Network Operations Specialist) - 0(Both) 2. Best Gaze (Lateral Gaze Paresis) - 0(Normal) 3. Visual Field Loss - 0(No visual loss) 4. Facial Palsy - 0(Normal) 5a. Left Arm: Motor (10-second hold) - 0(No drift) 5b. Right Arm: Motor (10-second hold) - 0(No drift) 6a. Left Leg: Motor (5-second hold - always test supine) - 0(No drift) 6b. Right Leg: Motor (5-second hold - always test supine) - 0(No drift) 7. Limb Ataxia (finger/nose \\T\\ heel/espinosa - test with eyes open) - 0(Absent) 8. Sensory Loss (pinprick arms/legs/face) - 0(Normal) 9. Best Language: Aphasia (description/naming/reading) - 0(No aphasia) 10. Dysarthria (speech clarity - read or repeat words) - 0(Normal) 11. Extinction and Inattention (visual/tactile/auditory/spatial/personal) - 0(No abnormality) Initials: ke1 Signatures: Heriberto Lopez, DO DO ms3 Lily Shrestha ja2 Jovana Padilla, RN RN vc1 Ebrottie, Kouassi, RN RN ke1
--- NOTE | 2022-11-14 04:15 | P.HP ---
Certification for Inpatient Patient admitted to: Observation With expected LOS: <2 Midnights Patient will require the following post-hospital care: None Practitioner: I am a practitioner with admitting privileges, knowledge of patient current condition, hospital course, and medical plan of care. Services: Services provided to patient in accordance with Admission requirements found in Title 42 Section 412.3 of the Code of Federal Regulations <Kellen Osuna - Last Filed: 11/14/22 04:43> Patient History Date of Service: 11/14/22 Primary Care Provider: Juan Mckenzie Reason for admission: TIA/CVA Rule Out History of Present Illness: Patient is a 37 year old male with hypothyroidism, anxiety, and history of pulmonary embolism who presented to the ED with complaints of left sided weakness and numbness. Patient reports that he woke up in the middle of the night and could not move his left side at all. He reports he could not walk but was able to crawl. He denies any previous episodes. Symptoms have now resolved. NIHSS 0 upon arrival to ED. Workup is negative- EKG, head CT, chest xray, labs. Vital signs have been stable. ED provider wishes to admit patient for CVA rule out. Home medications list reviewed: Yes - Past Medical/Surgical History Diabetic: No -: Pulmonary Embolism -: Anxiety -: Hypothyroidism Past Surgical History: Patient denies surgical history Psychosocial/ Personal History: Patient is . - Family History Family History: Reviewed- Non-Contributory - Social History Smoking Status: Never smoker Alcohol use: Yes CD- Drugs: No Caffeine use: Yes Place of Residence: Home <Kellen Osuna - Last Filed: 11/14/22 04:43> Date of Service: 11/14/22 - Family History Father -: Hypertension Mother -: Hypertension <Orville Rossi - Last Filed: 11/14/22 12:48> Review of Systems Neurological: Weakness, Numbness <EnrriqueKellen - Last Filed: 11/14/22 04:43> Physical Examination - Vital Signs Temperature: 97.6 F Blood Pressure: 127/97 Pulse: 71 Respirations: 20 Pulse Ox (%): 99 - Physical Exam General: Alert, In no apparent distress HEENT: Atraumatic, EOMI, Sclerae nonicteric Neck: Supple, 2+ carotid pulse no bruit Respiratory: Clear to auscultation bilaterally, Normal air movement Cardiovascular: Regular rate/rhythm, Normal S1 S2 Gastrointestinal: Normal bowel sounds, No tenderness Musculoskeletal: No tenderness Integumentary: No rashes Neurological: Normal gait, Normal speech, Normal strength at 5/5 x4 extr, Sensation intact, Normal affect - Studies Laboratory Data (last 24 hrs) 11/14/22 02:13: PT 10.3, INR 0.94, APTT 24.2 L 11/14/22 02:13: WBC 6.50, Hgb 14.4, Hct 42.7, Plt Count 201 11/14/22 02:13: Sodium 138, Potassium 3.4 L, BUN 18, Creatinine 0.99, Glucose 100 <Kellen Osuna - Last Filed: 11/14/22 04:43> - Studies Laboratory Data (last 24 hrs) 11/14/22 02:13: PT 10.3, INR 0.94, APTT 24.2 L 11/14/22 02:13: WBC 6.50, Hgb 14.4, Hct 42.7, Plt Count 201 11/14/22 02:13: Sodium 138, Potassium 3.4 L, BUN 18, Creatinine 0.99, Glucose 100 <Orville Rossi - Last Filed: 11/14/22 12:48> Assessment and Plan - Problems (Diagnosis) (1) TIA (transient ischemic attack) Current Visit: Yes Status: Acute (2) Hypothyroidism Current Visit: Yes Status: Chronic Qualifiers: Hypothyroidism type: unspecified Qualified Code(s): E03.9 - Hypothyroidism, unspecified (3) Anxiety Current Visit: Yes Status: Chronic (4) History of pulmonary embolism Current Visit: Yes Status: Chronic - Plan Patient is admitted for observation, CVA rule out. Head CT negative. MRI stroke protocol and echo ordered. Symptoms likely anxiety related or TIA. Patient does have history of PE in 2020. States he had a workup done and no cause was found. Continue to monitor patient's neurologic status and vitals. Check lipid panel and TSH. Monitor and replete electrolytes per protocol. Reconcile and continue home medications. Lovenox for VTE prophylaxis. Full code. Discharge Plan: Home Plan to discharge in: 24 Hours - Advance Directives Does patient have a Living Will: No Does patient have a Durable POA for Healthcare: No - Code Status/Comfort Care Code Status Assessed: Yes Code Status: Full Code Physician Review: Patient Assessed, Agree with Above Assessment and Plan Critical Care: No Time Spent Managing Pts Care (In Minutes): 50 <Kellen Osuna - Last Filed: 11/14/22 04:43> Physician Review: Patient Assessed, Agree with Above Assessment and Plan <Orville Rossi - Last Filed: 11/14/22 12:48>
[2022-11-14] MEDS ORDERED: ASPIRIN 81 MG CHEWABLE TABLET ONE (04:25)
[2022-11-14 04:55] LABS: SARS-CoV-2 Antigen Rapid Res Negative (Negative)
[2022-11-14] MEDS ORDERED: ONDANSETRON 4 MG/2 ML VIAL IV PRN (05:38)
[2022-11-14] MEDS ORDERED: NA CHLORIDE 0.9% 1,000 ML IV SCH (05:38)
[2022-11-14] MEDS ORDERED: ACETAMINOPHEN 500 MG TAB PO PRN (05:38)
[2022-11-14 05:49] VITALS: BMI 23.8
[2022-11-14 06:03] VITALS: O2SAT 98
[2022-11-14 07:55] LABS: T4,Total 4.1 ug/dL (4.5-12.1)
[2022-11-14 07:58] LABS: Thyroid Stimulating Hormone 6.59 uIU/mL (0.358-3.740)
[2022-11-14] MEDS ORDERED: ENOXAPARIN 40 MG/0.4 ML SQ SCH (09:00)
[2022-11-14] MEDS ORDERED: POTASSIUM CL SA 10 MEQ TAB PO ONE (09:00)
--- NOTE | 2022-11-14 10:02 | RAD REPORT ---
EXAM DESCRIPTION: MRI - Brain W/Wo Cont - 11/14/2022 9:03 am CLINICAL HISTORY: LEFT SIDE WEAKNESS/NUMBNESS Headache, drowsiness COMPARISON: MRA Head Wo Cont dated 11/14/2022; MRA Neck W/Wo Cont dated 11/14/2022 TECHNIQUE: Multi-sequence, multiplanar MR imaging of the brain was performed with contrast. FINDINGS: No intracranial hemorrhage, hydrocephalus, or extra-axial fluid collection.Mild brain atro phy. No edema or shift of midline structures. No intracranial mass. DWI is negative for acute CVA. The midline structures are normally formed. Mastoid air cells and paranasal sinuses are clear. Post-contrast images show no abnormal enhancement to suggest tumor or infection. IMPRESSION: Negative for acute CVA or other acute intracranial process. No pathologic post-contrast enhancement suspected.
--- NOTE | 2022-11-14 10:14 | RAD REPORT ---
EXAM DESCRIPTION: MRI - MRA Head Wo Cont - 11/14/2022 10:02 am CLINICAL HISTORY: left sided weakness/numbness CVA COMPARISON: Head Brain Wo Cont dated 11/14/2022 FINDINGS: 3D noncontrast [id number] MR angiography of the [place] was performed. No aneurysm, flow-limiting stenosis or vascular malformation is seen. Forward flow seen in left-sided dominant vertebral artery. The visualized dural venous sinuses appear patent. IMPRESSION: No significant flow abnormality of the [place] is identified.
--- NOTE | 2022-11-14 10:16 | RAD REPORT ---
EXAM DESCRIPTION: MRI - MRA Neck W/Wo Cont - 11/14/2022 10:02 am CLINICAL HISTORY: LEFT SIDE WEAKNESS/NUMBNESS Headache, drowsiness, CVA symptomology COMPARISON: No comparisons FINDINGS: Contrast enhance 2D [id number] MR angiography of the neck vessels was performed. A left aortic arch is noted. Normal 3 vessel origin of the great vessels. Both subclavian arteries as well as common carotid arteries are patent. No significant internal carotid artery stenosis. Antegrade flow is seen in codominant vertebral arteries. IMPRESSION: No significant flow abnormality of the neck vessels identified.
[2022-11-14 12:29] VITALS: BP 122/80; TEMP 98
--- NOTE | 2022-11-14 12:51 | P.DS ---
Admission Date: 11/14/22 Discharge Date: 11/14/22 Primary Care Provider: Juan Mckenzie Disposition: ROUTINE DISCHARGE Discharge Condition: GOOD Reason for Admission: TIA/CVA Rule Out Hospital Course: DIAGNOSES: # Left Upper/Lower Extremity Numbness - resolved # Hypothyroidism # History of Pulmonary Embolism # Generalized Anxiety Disorder HOSPITAL COURSE: Mr. Hugo Yu is a 37 year old male with a past medical history significant for hypothyroidism, generalized anxiety disorder, and history of pulmonary embolism who was admitted to the [facility] on 11/14/2022 for left upper and lower extremity numbness. He was admitted to the Medicine service. By the time of my evaluation, his neurologic deficits had completely resolved. His MRI brain revealed, "negative for acute CVA or other acute intracranial process. No pathologic post-contrast enhancement suspected." His MRA head revealed, "no significant flow abnormality of the [place] of [place] is identified." His MRA neck revealed, "no significant flow abnormality of the neck vessels identified." He stated that he felt well and would like to be discharged home. I spoke with his PCP (Dr. Mckenzie), who advised that he be started on baby aspirin daily. I have also advised that he follow-up with Dr. Tom for further evaluation. I have spoken with Dr. Tom who agrees that he is cleared for discharge with outpatient follow-up. Of note, his labs were consistent with hypothyroidism. I spoke with Mr. Yu as well as with Dr. Mckenzie. This will be addressed as an outpatient. On 11/14/2022, he was seen on morning rounds and deemed medically stable for discharge. He was discharged with instructions to schedule follow-up appointments with his PCP (Dr. Mckenzie) and with Neurology (Dr. Tom). He was given the opportunity to ask questions and reported no further questions. Furthermore, all questions were answered to the best of my ability. A copy of this discharge summary will be sent to the above providers to facilitate continuity of care. Today, I personally spent 25 minutes on his case, of which greater than 50% of the time was spent in patient education, counseling, and coordination of care as described above. NIH Stroke Scale 1a. Level of consciousness: 0 - Alert; keenly responsive 1b. LOC questions: 0 - Both questions right 1c. LOC commands: 0 - Performs both tasks 2. Best Gaze: 0 - Normal 3. Visual: 0 - No visual loss 4. Facial Palsy: 0 - Normal symmetry 5a. Motor left arm: 0 - No drift for 10 seconds 5b. Motor right arm: 0 - No drift for 10 seconds 6a. Motor left le - No drift for 5 seconds 6b. Motor right le - No drift for 5 seconds 7. Limb ataxia: 0 - No ataxia 8. Sensory: 0 - Normal; no sensory loss 9. Best Language: 0 - Normal; no aphasia 10. Dysarthria: 0 - Normal 11. Extinction and Inattention: 0 - No abnormality 12. Distal motor function: 0 - No abnormality Total Score: 0 Vital Signs/Physical Exam: Temp Pulse Resp BP Pulse Ox 98.0 F 77 17 122/80 98 11/14/22 12:00 11/14/22 12:00 11/14/22 12:00 11/14/22 12:00 11/14/22 12:00 General: Alert, In no apparent distress, Oriented x3 HEENT: Atraumatic, PERRLA, Mucous membr. moist/pink, EOMI, Sclerae nonicteric Neck: JVD not distended Respiratory: Clear to auscultation bilaterally, Normal air movement Cardiovascular: No edema, Regular rate/rhythm, Normal S1 S2, No gallops, No rubs, No murmurs Gastrointestinal: Normal bowel sounds, Soft and benign, Non-distended, No tenderness, No rebound, No guarding Musculoskeletal: No clubbing Integumentary: No rashes Neurological: Normal speech, Normal strength at 5/5 x4 extr, Normal tone, Sensation intact, Cranial nerves 3-12 intact, Normal affect Laboratory Data at Discharge: WBC 6.50 K/uL (4.3-10.9) 11/14/22 02:13 Hgb 14.4 g/dL (13.6-17.9) 11/14/22 02:13 Hct 42.7 % (39.6-49.0) 11/14/22 02:13 Plt Count 201 K/uL (152-406) 11/14/22 02:13 PT 10.3 SECONDS (9.5-12.5) 11/14/22 02:13 INR 0.94 11/14/22 02:13 APTT 24.2 SECONDS (24.3-36.9) L 11/14/22 02:13 Sodium 138 mmol/L (136-145) 11/14/22 02:13 Potassium 3.4 mmol/L (3.5-5.1) L 11/14/22 02:13 BUN 18 mg/dL (7-18) 11/14/22 02:13 Creatinine 0.99 mg/dL (0.70-1.30) 11/14/22 02:13 Glucose 100 mg/dL (74-106) 11/14/22 02:13 Phosphorus 4.0 mg/dL (2.5-4.9) 11/14/22 06:43 Magnesium 2.0 mg/dL (1.6-2.4) 11/14/22 06:43 Triglycerides 216 mg/dL (<150) H 11/14/22 06:43 Cholesterol 185 mg/dL (<200) 11/14/22 06:43 HDL Cholesterol 48 mg/dL (40-60) 11/14/22 06:43 Cholesterol/HDL Ratio 3.85 11/14/22 06:43 Home Medications: ALPRAZolam [Xanax*] 0.25 mg PO PRN PRN 11/14/22 Aspirin Chewable [Aspirin Chewable*] 81 mg PO DAILY #1 tab.chew 11/14/22 Levothyroxine [Synthroid*] 0.05 mg PO DAILY 11/14/22 Tadalafil [Cialis] 5 mg PO PRN 11/14/22 New Medications: Aspirin Chewable [Aspirin Chewable*] 81 mg PO DAILY #1 tab.chew Physician Discharge Instructions: 1. Please call and schedule a follow-up appointment with your PCP (Dr. Mckenzie) in 3-5 days 2. Please call and schedule a follow-up appointment with Neurology (Dr. Tom) in 5-7 days - Please start taking a baby aspirin 81 mg once per day - Please call the 2nd floor nurse's station at [phone] if you have any questions regarding your hospital stay. - Please return to the nearest emergency room if your symptoms worsen. Diet: Regular Activity: Ad humza Followup: Dickson Tom MD [ASSOCIATE-ACTIVE - CAN ADMIT] - 1 Week Kayden Mckenzie MD [Primary Care Provider] - 1 Week Time spent managing pt's care (in minutes): 25
--- NOTE | 2022-11-14 15:33 | RAD REPORT ---
EXAM DESCRIPTION: XR Chest, 1 View CLINICAL HISTORY: The patient is 37 years old and is Male; left sided numbness TECHNIQUE: Frontal view of the chest. COMPARISON: No relevant prior studies available. FINDINGS: LUNGS: Unremarkable. No consolidation. PLEURAL SPACE: Unremarkable. No pneumothorax. HEART: Unremarkable. No cardiomegaly. MEDIASTINUM: Unremarkable. BONES/JOINTS: Unremarkable. UPPER ABDOMEN: Unremarkable as visualized. IMPRESSION: No acute cardiopulmonary process. Electronically signed by: Dory Nolan MD 11/14/2022 2:36 AM ESTATE TAX EXAMINER Due to temporary technical issues with the PACS/Fluency reporting system, reports are being signed by the in house radiologists without review as a courtesy to insure prompt reporting. The interpreting radiologist is fully responsible for the content of the report.
--- NOTE | 2022-11-14 15:34 | RAD REPORT ---
EXAM DESCRIPTION: CT Head Without Intravenous Contrast CLINICAL HISTORY: The patient is 37 years old and is Male; left sided weakness/ numbness TECHNIQUE: Axial computed tomography images of the head/brain without intravenous contrast. Sagitt al and coronal reformatted images were created and reviewed. This CT exam was performed using one o r more of the following dose reduction techniques: automated exposure control, adjustment of the mA and/or kV according to patient size, and/or use of iterative reconstruction technique. COMPARISON: No relevant prior studies available. FINDINGS: BRAIN: Unremarkable. The suero-white matter differentiation is preserved . No hemorrhag e. No significant white matter disease. No edema. No extra-axial fluid collections. VENTRICLES: Unremarkable. No ventriculomegaly. BONES/JOINTS: No acute fracture. SOFT TISSUES: Unremarkable. SINUSES: Unremarkable as visualized. No acute sinusitis. MASTOID AIR CELLS: Unremarkable as visualized. No mastoid effusion. ORBITS: Unremarkable as visualized. IMPRESSION: No acute intracranial findings. Electronically signed by: Dory Nolan MD 11/14/2022 2:39 AM GOLF CART REPAIRER Due to temporary technical issues with the PACS/Fluency reporting system, reports are being signed by the in house radiologists without review as a courtesy to insure prompt reporting. The interpreting radiologist is fully responsible for the content of the report.
[2022-11-14] MEDS ORDERED: ATORVASTATIN 20 MG TAB PO SCH (21:00)
[2022-11-15] MEDS ORDERED: LEVOTHYROXINE SOD 0.025 MG TAB PO SCH (06:30)
--- NOTE | 2022-11-15 06:44 | ECHO ---
HEIGHT: 5 ft 10 in WEIGHT: 166 lb 9 oz DATE OF STUDY: 11/14/[address]: Kellen Osuna 2-DIMENSIONAL: YES M.MODE: YES DOPPLER: YES COLOR FLOW: YES TDS: NO PORTABLE: YES DEFINITY: NO BUBBLE STUDY: NO DIAGNOSIS: STROKE CARDIAC HISTORY: CATHERIZATION: NO SURGERY: NO PROSTHETIC VALVE: NO PACEMAKER: NO MEASUREMENTS (cm) DIASTOLIC (NORMALS) SYSTOLIC (NORMALS) IVSd 0.9 (0.6-1.2) LA Diam 2.3 (1.9-4.0) LVEF 63% LVIDd 4.3 (3.5-5.7) LVIDs 2.8 (2.0-3.5) %FS 34% LVPWd 1.0 (0.6-1.2) Ao Diam 3.0 (2.0-3.7) 2 DIMENSIONAL ASSESSMENT: RIGHT ATRIUM: NORMAL LEFT ATRIUM: NORMAL RIGHT VENTRICLE: NORMAL LEFT VENTRICLE: NORMAL TRICUSPID VALVE: MILD TRICUSPID REGURGITATION MITRAL VALVE: TRACE OF MITRAL REGURGITATION PULMONIC VALVE: MILD PULMONIC INSUFFICIENCY AORTIC VALVE: NORMAL PERICARDIAL EFFUSION: NONE AORTIC ROOT: NORMAL LEFT VENTRICULAR WALL MOTION: NORMAL. DOPPLER/COLOR FLOW: SEE BELOW. COMMENTS: NORMAL LEFT VENTRICULAR EJECTION FRACTION 55-60% WITH NORMAL WALL MOTION. LIOR DIASTOLIC FUNCTION. MILD (TRICUSPID REGURGITATION, PULMONIC INSUFFICIENCY, MITRAL REGURGITATION). TECHNOLOGIST: ART GARCIA
--- NOTE | 2022-11-15 17:17 | EKG ---
Test Date: 2022-11-14 Test Time: 02:56:46 Thaw Shed Heater Tender: JC MEASUREMENT RESULTS: Intervals: Rate: 74 WI: 150 QRSD: 98 QT: 372 QTc: 412 [place]: P: 60 WI: 150 QRS: 78 T: 38 INTERPRETIVE STATEMENTS: Normal sinus rhythm Normal ECG Compared to ECG 08/05/2021 10:34:51 No significant changes Electronically Signed On 11-15-22 17:10:57 MILLER HELPER by Jarett Marshall
== END 2022-11-14 13:15 | disposition home or self-care (01) ==
LOC: ER 01:32 → ERHOLD 04:06 → 2ND 05:30
PROVIDERS: ADMIT Internal Medicine; ATTEND Internal Medicine
DX: R20.0 Anesthesia of skin (principal); E03.9 Hypothyroidism, unspecified; F41.9 Anxiety disorder, unspecified; Z86.711 Personal history of pulmonary embolism; Z20.822 Contact with and (suspected) exposure to COVID-19
CPT/HCPCS: 93306; 85025; 80048; 36415; 83735; 84100; 85610; 80061; 82947; 85730; 84436; 84443; 84484; 84439; 70450; 71045; 70553; 70544; 70549; 92523; 97161; 87811; A9577; J1650; J7030; G0480; 93005; G0378

== ENCOUNTER 2024-10-25 17:54 | Emergency (ER) | payer OTHER ==
[2024-10-25 18:33] LABS: Absolute Eosinophils 0.2 K/uL (0-0.5); Absolute Lymphocytes (CBC) 1.4 K/uL (0.7-4.9); Absolute Neutrophil 9.6 K/uL (1.8-8.0); Basophils % 0.4 % (0-1.3); Eosinophils % 1.6 % (0-4.4); Hematocrit 42.9 % (39.6-49.0); Hemoglobin 14.6 g/dL (13.6-17.9); Lymphocytes % 11.7 % (15.3-44.8); MCH 29.3 pg (27.0-35.0); MCHC 34.1 g/dL (32.0-36.0); MCV 85.9 fL (80-100); MPV 8.6 fL (7.6-11.3); Monocytes % 7.8 % (3.3-12.3); Neutrophils % 78.5 % (41.7-73.7); Nucleated Red Blood Cells % 0.1 % (0-0); Platelets 294 thou/uL (152-406); RBC Red Blood Cell Count 4.99 M/uL (4.33-5.43); Red Cell Distribution Width 13.1 % (12.1-15.2)
[2024-10-25] MEDS ORDERED: NA CHLORIDE 0.9% 1,000 ML ONE (18:39)
[2024-10-25] MEDS ORDERED: ONDANSETRON 4 MG/2 ML VIAL ONE (18:39)
[2024-10-25] MEDS ORDERED: FAMOTIDINE 20 MG/2 ML VIAL IV ONE (18:39)
[2024-10-25 18:49] LABS: Albumin/Globulin Ratio 0.8 (1.1-1.8); Anion Gap 7.6 mEq/L (5.0-15.0); Bilirubin Total 0.4 mg/dL (0.2-1.0); Globulin 3.6 g/dL (2.3-3.5); Potassium 3.6 mEq/L (3.5-5.1); Protein, Total 6.6 g/dL (6.4-8.2)
--- NOTE | 2024-10-25 19:21 | RAD REPORT ---
EXAMINATION: CT ABDOMEN AND PELVIS WITH CONTRAST CLINICAL INDICATION: Abdominal pain TECHNIQUE: CT abdomen and pelvis was performed, after the administration of 100 cc Isovue-300.. Sagit hector and coronal reconstructions were obtained. One or more of the following dose reduction techniques were used: Automated exposure control, adjustment of the mA and kV according to patient si ze, and iterative reconstruction. Unless otherwise specified, incidental findings do not require dedicated imaging follow-up. [id number]. Oral contrast was not given which limits evaluation of bowel and appendix. COMPARISON: .None FINDINGS: Liver, spleen, pancreas, adrenals and kidneys appear unremarkable No evidence of diverticulitis. Moderate thickening of the wall of the descending and transverse colon. The rectal wall is also thick ened. Mild stranding within the adjacent fat. This has the appearance of a colitis. Pneumatosis intestinalis is not present. : IMPRESSION: Moderate left colitis
--- NOTE | 2024-10-25 21:03 | ER ---
Nurse's Notes [facility] Name: Hugo Yu Age: 39 yrs Sex: Male : 1985 Arrival Date: 10/25/2024 Time: 17:54 Bed 26 Private MD: Diagnosis: Colitis Presentation: 10/25 18:10 Chief complaint: Dark red bloody diarrhea and abdominal pain x 2 weeks. Coronavirus hb screen: At this time, the client does not indicate any symptoms associated with coronavirus-19. Ebola Screen: No symptoms or risks identified at this time. Initial Sepsis Screen: Does the patient meet any 2 criteria? No. Patient's initial sepsis screen is negative. Does the patient have a suspected source of infection? No. Patient's initial sepsis screen is negative. Risk Assessment: Do you want to hurt yourself or someone else? Patient reports no desire to harm self or others. Onset of symptoms was October 11, 2024. 18:10 Method Of Arrival: Ambulatory hb 18:10 Acuity: AMADA 3 hb Historical: - Allergies: 18:11 No Known Allergies; hb - PMHx: 18:11 Anxiety; Hypothyroidism; PE; hb - Immunization history:: Adult Immunizations up to date. - Infectious Disease History:: Denies. - Social history:: Smoking status: Reported history of juuling and/or vaping. Screenin:58 [facility] ED Fall Risk Assessment (Adult) History of falling in the last 3 months, jb4 including since admission No falls in past 3 months (0 pts) Confusion or Disorientation No (0 pts) Intoxicated or Sedated No (0 pts) Impaired Gait No (0 pts) Mobility Assist Device Used No (0 pt) Altered Elimination No (0 pt) Score/Fall Risk Level 0 - 2 = Low Risk Oriented to surroundings, Maintained a safe environment. Abuse screen: Denies threats or abuse. Nutritional screening: No deficits noted. Tuberculosis screening: No symptoms or risk factors identified. Assessment: 18:10 General: Appears in no apparent distress. comfortable, Behavior is calm, cooperative, jb4 appropriate for age. Pain: Denies pain. Neuro: Level of Consciousness is awake, alert, obeys commands, Oriented to person, place, time, situation. Cardiovascular: Patient's skin is warm and dry. Respiratory: Airway is patent Respiratory effort is even, unlabored, Respiratory pattern is regular, symmetrical. GI: Reports diarrhea, bloody stool, nausea. Derm: Skin is intact, Skin is pink, warm \T\ dry. Musculoskeletal: Circulation, motion, and sensation intact. Range of motion: intact in all extremities. 19:22 Reassessment: Patient appears in no apparent distress at this time. Patient and/or jb4 family updated on plan of care and expected duration. Pain level reassessed. Patient is alert, oriented x 3, equal unlabored respirations, skin warm/dry/pink. 21:58 Reassessment: Patient appears in no apparent distress at this time. Patient and/or jb4 family updated on plan of care and expected duration. Pain level reassessed. Patient is alert, oriented x 3, equal unlabored respirations, skin warm/dry/pink. Vital Signs: 18:10 BP 119 / 76; Pulse 96; Resp 16; Temp 97.4; Pulse Ox 100% on R/A; Weight 72.57 kg; hb Height 5 ft. 10 in. ; Pain 1/10; 20:47 BP 121 / 84; Pulse 90; Resp 16; Pulse Ox 99% on R/A; jb4 21:58 BP 120 / 85; Pulse 83; Resp 16; Pulse Ox 98% on R/A; jb4 18:10 Body Mass Index 22.96 (72.57 kg, 177.8 cm) hb 18:10 Pain Scale: Adult hb ED Course: 17:56 Patient arrived in ED. al6 18:08 Snehal Julien FNP-C is [facility]. kb 18:08 Anand Maldonado MD is Attending Physician. kb 18:11 Triage completed. hb 18:11 Arm band placed on. hb 18:52 CT Abd/Pelvis - IV Contrast Only In Process Unspecified. EDMS 21:58 Patient has correct armband on for positive identification. Bed in low position. Call jb4 light in reach. Side rails up X 1. Provided Education on: discharge instructions.. 21:58 No provider procedures requiring assistance completed. IV discontinued, intact, jb4 bleeding controlled, No redness/swelling at site. Pressure dressing applied. Administered Medications: 18:40 Drug: Famotidine IVP 20 mg IVP once; dilute with 10 mL 0.9% NaCl; give over 2 minutes jb4 Route: IVP; Site: right antecubital; 19:23 Follow up: Response: No adverse reaction; Marked relief of symptoms jb4 18:40 Drug: Ondansetron IVP 4 mg IVP once; over 2 minutes Route: IVP; Site: right antecubital;jb4 19:23 Follow up: Response: No adverse reaction; Marked relief of symptoms jb4 18:40 Drug: NS 0.9% IV 1000 ml IV at 1 bolus Per protocol; to be given as a bolus over 60 jb4 minutes Route: IV; Rate: 1 bolus; Site: right antecubital; 21:40 Follow up: Response: No adverse reaction; Marked relief of symptoms; IV Status: jb4 Completed infusion; IV Intake: 1000ml 21:52 Drug: Ciprofloxacin PO 500 mg PO once Route: PO; jb4 21:57 Follow up: Response: Medication administered at discharge. jb4 21:52 Drug: metroNIDAZOLE PO 500 mg PO once Route: PO; jb4 21:57 Follow up: Response: Medication administered at discharge. jb4 Medication: 21:58 VIS not applicable for this client. jb4 Intake: 21:40 IV: 1000ml; Total: 1000ml. jb4 Outcome: 21:03 Discharge ordered by MD. locke 21:58 Discharged to home ambulatory, jb4 21:58 Condition: stable 21:58 Discharge instructions given to patient, Instructed on discharge instructions, follow up and referral plans. medication usage, Demonstrated understanding of instructions, follow-up care, medications, Prescriptions given X 2, 22:00 Patient left the ED. jb4 Signatures: Dispatcher [employer] EDSnehal Marquez, LESLIE SWAN-Christiane Davidson RN RN hb Bryson, James, RN RN jb4 Jie Rose6
--- NOTE | 2024-10-25 21:03 | EDPHYS ---
Physician Documentation [facility] Name: Hugo Yu Age: 39 yrs Sex: Male : 1985 Arrival Date: 10/25/2024 Time: 17:54 Bed 26 Private MD: ED Physician Anand Maldonado HPI: 10/25 21:00 This 39 yrs old Male presents to ER via Ambulatory with complaints of Bloody Stools. kb 21:00 Pt is a 39 year old male who presents for diarrhea and blood in stool for 2 weeks. kb Denies fever, nausea, vomiting, abd pain. States "I always have the feeling I need to have a bowel movement." Denies large amount of blood.. Historical: - Allergies: 18:11 No Known Allergies; hb - PMHx: 18:11 Anxiety; Hypothyroidism; PE; hb - Immunization history:: Adult Immunizations up to date. - Infectious Disease History:: Denies. - Social history:: Smoking status: Reported history of juuling and/or vaping. ROS: 20:59 Constitutional: As per HPI kb Exam: 20:59 Constitutional: This is a well developed, well nourished patient who is awake, alert, kb and in no acute distress. Head/Face: Normocephalic, atraumatic. ENT: Moist Mucous membranes Cardiovascular: Regular rate Respiratory: Respirations even and unlabored. No increased work of breathing. Talking in full sentences Skin: Warm, dry with normal turgor. Normal color. MS/ Extremity: Pulses equal, no cyanosis. Neurovascular intact. Full, normal range of motion. Neuro: Awake and alert, GCS 15, oriented to person, place, time, and situation. 20:59 Abdomen/GI: Inspection: abdomen appears normal, Bowel sounds: normal, Palpation: soft, in all quadrants, mild abdominal tenderness, in the left lower quadrant, Vital Signs: 18:10 BP 119 / 76; Pulse 96; Resp 16; Temp 97.4; Pulse Ox 100% on R/A; Weight 72.57 kg; hb Height 5 ft. 10 in. ; Pain 1/10; 20:47 BP 121 / 84; Pulse 90; Resp 16; Pulse Ox 99% on R/A; jb4 21:58 BP 120 / 85; Pulse 83; Resp 16; Pulse Ox 98% on R/A; jb4 18:10 Body Mass Index 22.96 (72.57 kg, 177.8 cm) hb 18:10 Pain Scale: Adult hb MDM: 18:08 Medical Screening Exam initiated kb 21:00 Differential diagnosis: colitis, diverticulitis, hemorrhoid, bowel obstruction. Data kb reviewed: vital signs, nurses notes. Counseling: I had a detailed discussion with the patient and/or guardian regarding the historical points, exam findings, and any diagnostic results supporting the discharge/admit diagnosis, lab results, radiology results, the need for outpatient follow up, a family practitioner, to return to the emergency department if symptoms worsen or persist or if there are any questions or concerns that arise at home. 10/25 18:14 Order name: CBC with Diff; Complete Time: 18:38 kb 10/25 18:14 Order name: CMP; Complete Time: 18:51 kb 10/25 18:14 Order name: Lipase; Complete Time: 18:51 kb 10/25 18:14 Order name: CT Abd/Pelvis - IV Contrast Only; Complete Time: 19:22 kb 10/25 18:14 Order name: IV Saline Lock; Complete Time: 19:00 kb 10/25 18:14 Order name: Labs collected and sent; Complete Time: 19:00 kb Administered Medications: 18:40 Drug: Famotidine IVP 20 mg IVP once; dilute with 10 mL 0.9% NaCl; give over 2 minutes jb4 Route: IVP; Site: right antecubital; 19:23 Follow up: Response: No adverse reaction; Marked relief of symptoms jb4 18:40 Drug: Ondansetron IVP 4 mg IVP once; over 2 minutes Route: IVP; Site: right antecubital;jb4 19:23 Follow up: Response: No adverse reaction; Marked relief of symptoms jb4 18:40 Drug: NS 0.9% IV 1000 ml IV at 1 bolus Per protocol; to be given as a bolus over 60 jb4 minutes Route: IV; Rate: 1 bolus; Site: right antecubital; 21:40 Follow up: Response: No adverse reaction; Marked relief of symptoms; IV Status: jb4 Completed infusion; IV Intake: 1000ml 21:52 Drug: Ciprofloxacin PO 500 mg PO once Route: PO; jb4 21:57 Follow up: Response: Medication administered at discharge. jb4 21:52 Drug: metroNIDAZOLE PO 500 mg PO once Route: PO; jb4 21:57 Follow up: Response: Medication administered at discharge. jb4 Disposition Summary: 10/25/24 21:03 Discharge Ordered Notes: Location: Home kb Condition: Stable kb Diagnosis - Colitis kb Followup: kb - With: Emergency Department - When: As needed - Reason: Worsening of condition Followup: kb - With: Private Physician - When: 2 - 3 days - Reason: Recheck today's complaints, Continuance of care, Re-evaluation by your physician Discharge Instructions: - Discharge Summary Sheet kb - Colitis kb Forms: - Medication Reconciliation Form kb - Antibiotic Education kb - Prescription Opioid Use kb - Patient Portal Instructions kb - Leadership Thank You Letter kb Prescriptions: - Cipro 500 mg Oral Tablet - take 1 tablet ORAL route every 12 hours for 10 days; 20 tablet; Refills: 0, kb Product Selection Permitted - Flagyl 500 mg Oral Tablet - take 1 tablet ORAL route every 8 hours for 10 days; 30 tablet; Refills: 0, kb Product Selection Permitted Signatures: Dispatcher [employer] EDSnehal Marquez, STOCK LIFTER-C STOCK LIFTER-Christiane Davidson, RN RN Dontrell Granado, RN RN jb4 Corrections: (The following items were deleted from the chart) 18:15 18:15 CBC+H.LAB.BRZ ordered. EDMS EDMS 18:15 18:15 COMPREHENSIVE METABOLIC PANEL+C.LAB.BRZ ordered. EDMS EDMS 18:15 18:15 LIPASE+C.LAB.BRZ ordered. EDMS EDMS 18:15 18:15 Urinalysis+U.LAB.BRZ ordered. EDMS EDMS
[2024-10-25] MEDS ORDERED: metroNIDAZOLE 500 MG TABLET ONE (21:49)
[2024-10-25] MEDS ORDERED: CIPROFLOXACIN HCL 500 MG TAB ONE (21:49)
[2024-10-26 01:05] VITALS: TEMP 97.4
[2024-10-26 01:08] VITALS: BP 120/85; O2SAT 98
== END 2024-10-25 22:00 | disposition home or self-care (01) ==
LOC: ER 17:54
DX: K52.9 Noninfective gastroenteritis and colitis, unspecified (principal)
CPT/HCPCS: 96361; 85025; 36415; 82565; 83690; 80053; 74177; 96375; 96374; 99284; Q9967; J2405; J7030